=== PATIENT | male | born 1960 | race Caucasian/White ===

== ENCOUNTER → 2017-10-08 | Outpatient (CLI) | payer OTHER ==
[~2017-10-08] MED LIST: DICL100G18 TP; OXYC60TA7 PO
--- NOTE | 2017-10-08 13:31 | RAD ---
Right upper quadrant ultrasound 10/08/2017 Indication: Hepatitis C Comparison study: None Discussion: Ultrasound evaluation of the right upper quadrant was performed. Static images are submitted to PACS. The pancreas is not visualized secondary to overlying gas-filled bowel. Limited visualization of the aorta and IVC are unremarkable. The gallbladder is mildly distended measuring 5 cm in diameter. No bladder wall thickening, stones, or sludge is seen. No pericholecystic fluid is identified. Portal venous flows in the normal direction. Common bile duct is mildly dilated at 7 mm. The liver is mildly and diffusely hyperechoic. Within the posterior superior right liver there is a a hyperechoic mass measuring up to 2.5 cm in diameter. The liver is enlarged measuring 20 cm longitudinally. The liver is diffusely hyperechoic consistent with hepatic steatosis. The right kidney measures 12.2 cm and is normal in appearance. Visualized portions of the liver contour is within normal limits. Impression: 1. Hepatomegaly and probable hepatic steatosis 2. 2.5 cm hyperechoic mass in the posterior superior liver. Ultrasound appearance most commonly reflects a hepatic hemangioma. However given prior history of hepatitis C further characterization with hepatic protocol MRI or CT scan is recommended to exclude other masses including neoplastic lesions which can also produce this appearance. 3. Mild dilatation of the common bile duct. Mild gallbladder distention. Correlate with serum bilirubin levels. If there is concern for occult obstructive process, MRCP evaluation may be helpful.
== END | disposition home or self-care (01) ==
LOC: US 09:28
PROVIDERS: ATTEND Internal Medicine Gastroenterology
DX: B19.20 Unspecified viral hepatitis C without hepatic coma (principal); R16.0 Hepatomegaly, not elsewhere classified; K82.8 Other specified diseases of gallbladder
CPT/HCPCS: 76705

== ENCOUNTER 2018-10-12 11:09 | Emergency (ER) | payer OTHER ==
[~2018-10-12] VITALS: Ht 185.4 cm; Wt 92.0 kg
[2018-10-12 11:20] VITALS: BP 119/76
--- NOTE | 2018-10-12 11:41 | PHYS DOC ---
Past History Past Medical History: No Pertinent History Past Surgical History: No Surgical History Alcohol Use: Occasionally Drug Use: None Adult General Chief Complaint Chief Complaint: SKIN PROBLEM HPI HPI 58-year-old male presents with cellulitis of the right knee. Patient states he woke up yesterday and had a red, hot knee. There was a central area that appeared like pus. He poked it with a needle and drained out thick, yellowish fluid. Today the redness around the area is larger than it was yesterday. It is also sore to bend his knee. Patient denies fever or chills. He has no other wounds. Review of Systems Review of Systems Constitutional: Denies fever or chills [] Eyes: Denies change in visual acuity, redness, or eye pain [] HENT: Denies nasal congestion or sore throat [] Respiratory: Denies cough or shortness of breath [] Cardiovascular: No additional information not addressed in HPI [] GI: Denies abdominal pain, nausea, vomiting, bloody stools or diarrhea [] : Denies dysuria or hematuria [] Musculoskeletal: Denies back pain or joint pain [] Integument: Cellulitis of the right knee[] Neurologic: Denies headache, focal weakness or sensory changes [] Endocrine: Denies polyuria or polydipsia [] All other systems were reviewed and found to be within normal limits, except as documented in this note. Allergies Allergies Allergies Coded Allergies Type Severity Reaction Last Updated Verified No Known Drug Allergies 10/17/13 No Physical Exam Physical Exam Constitutional: Well developed, well nourished, no acute distress, non-toxic appearance. [] HENT: Normocephalic, atraumatic, bilateral external ears normal, oropharynx moist, no oral exudates, nose normal. [] Eyes: PERRLA, EOMI, conjunctiva normal, no discharge. [] Neck: Normal range of motion, no tenderness, supple, no stridor. [] Cardiovascular:Heart rate regular rhythm, no murmur [] Lungs & Thorax: Bilateral breath sounds clear to auscultation [] Abdomen: Bowel sounds normal, soft, no tenderness, no masses, no pulsatile masses. [] Skin: 8 cm erythematous, warm area of skin over the right patella. Small superficial pus pocket in the center of the patella.[] Back: No tenderness, no CVA tenderness. [] Extremities: No tenderness, no cyanosis, no clubbing, ROM intact, no edema. [] Neurologic: Alert and oriented X 3, normal motor function, normal sensory function, no focal deficits noted. [] Psychologic: Affect normal, judgement normal, mood normal. [] Current Patient Data Vital Signs Vital Signs Date Time Temp Pulse Resp B/P (MAP) Pulse Ox O2 Delivery O2 Flow Rate FiO2 10/12/18 11:20 98.1 102 18 97 Room Air EKG EKG [] Radiology/Procedures Radiology/Procedures [] Course & Med Decision Making Course & Med Decision Making Pertinent Labs and Imaging studies reviewed. (See chart for details) The patient has cellulitis. There does appear to be very small amount of superficial purulent fluid around the scab from his previous attempt to drain it. I do not palpate a drainable abscess. I was able to scrape a bit of the fluid out and culture it. I we'll place the patient on Bactrim and Keflex. We will give him Rocephin IM in the ED. Patient is stable for discharge at this time. [] Dragon Disclaimer Dragon Disclaimer This electronic medical record was generated, in whole or in part, using a voice recognition dictation system. Departure Departure: Referrals: VINEET JARVIS (PCP) SILVIA PHILIP DO Oct 12, 2018 11:41
[2018-10-12] MEDS ORDERED: SULF1TAB24 PO (11:44)
[2018-10-12] MEDS ORDERED: CEPH-264 PO (11:44)
[2018-10-12] MEDS ORDERED: cefTRIAXone IM 1 GM VIAL IM ONE (12:10)
== END 2018-10-12 11:58 | disposition home or self-care (01) ==
LOC: ER 11:09
DX: L03.115 Cellulitis of right lower limb (principal)
CPT/HCPCS: 87070; 96372; 99283; J0696

== ENCOUNTER 2018-11-25 21:52 | Emergency (ER) | payer OTHER ==
[~2018-11-25 21:52] MED LIST changes: +CEPH-264 PO; +SULF1TAB24 PO
[2018-11-25 21:55] VITALS: BP 129/76
[2018-11-25] MEDS ORDERED: CEPH-264 PO (22:14)
--- NOTE | 2018-11-25 22:15 | PHYS DOC ---
Past History Past Medical History: No Pertinent History Past Surgical History: No Surgical History Alcohol Use: Occasionally Drug Use: None Adult General Chief Complaint Chief Complaint: HAND PROBLEM HPI HPI Patient is a 58-year-old male who presents with fishhook in his left hand. Patient states that his last tetanus shot was about a year ago. He reports pain in his hand as being mild. Review of Systems Review of Systems Constitutional: Denies fever or chills [] Respiratory: Denies cough or shortness of breath [] Cardiovascular: No additional information not addressed in HPI [] Musculoskeletal: Positive left hand pain with foreign body. [] Allergies Allergies Allergies Coded Allergies Type Severity Reaction Last Updated Verified No Known Drug Allergies 10/17/13 No Physical Exam Physical Exam Constitutional: Well developed, well nourished, no acute distress, non-toxic appearance. [] Cardiovascular:Heart rate regular rhythm, no murmur [] Lungs & Thorax: Bilateral breath sounds clear to auscultation [] Skin: Examination of left hand demonstrates a foreign body/fishing hook in the palmar aspect of the hand at the base of the second digit. [] EKG EKG [] Radiology/Procedures Radiology/Procedures [] Course & Med Decision Making Course & Med Decision Making Pertinent Labs and Imaging studies reviewed. (See chart for details) [place] in left hand removed without difficulty utilizing a loop of 1-0 Vicryl suture material. The loop was placed around curved area of her chest and base of the foot around the eye was held in place by farm operations technical director and quick tug was utilized to disengage the yoanna and hook was dislodged without difficulty. Patient tolerated procedure well without reported pain. Dragon Disclaimer Dragon Disclaimer This electronic medical record was generated, in whole or in part, using a voice recognition dictation system. Departure Departure: Impression: Primary Impression: Foreign body of hand, left Disposition: 01 HOME, SELF-CARE Condition: STABLE Referrals: CAMERON LOPEZ MD (PCP) Patient Instructions: Fish Hook Removal Scripts Cephalexin (KEFLEX) 500 Mg Capsule 1 CAP PO BID for prevent infection, #14 CAP Prov: MORIS ERICKSON Jr. DO 11/25/18 Problem Qualifiers Primary Impression: Foreign body of hand, left Encounter type: initial encounter Qualified Codes: S60.552A - Superficial foreign body of left hand, initial encounter MORIS ERICKSON Jr. DO Nov 25, 2018 22:15
== END 2018-11-25 22:15 | disposition home or self-care (01) ==
LOC: ER 21:52
DX: S60.552A Superficial foreign body of left hand, initial encounter (principal); X58.XXXA Exposure to other specified factors, initial encounter; Y93.89 Activity, other specified; Y92.89 Other specified places as the place of occurrence of the external cause; Y99.8 Other external cause status
CPT/HCPCS: 99284

== ENCOUNTER 2019-12-06 02:21 | Emergency (ER) | payer OTHER ==
[~2019-12-06] VITALS: Ht 188 cm; Wt 97.4 kg
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
[2019-12-06 02:34] VITALS: BP 141/86
[2019-12-06] MEDS ORDERED: SULF1TAB24 PO (02:35)
[2019-12-06] MEDS ORDERED: SMZ/TMP 800/160MG TABLET. PO ONE (02:45)
[2019-12-06] MEDS ORDERED: DIPHTH,PERTUSS(ACELL),TET TOX 0.5 ML DISP.SYRIN. VAX IM ONE (02:45)
== END 2019-12-06 03:17 | disposition home or self-care (01) ==
LOC: ER 02:21
DX: L03.115 Cellulitis of right lower limb (principal); F17.200 Nicotine dependence, unspecified, uncomplicated
CPT/HCPCS: 90471; 90715; 99283

== ENCOUNTER 2020-06-06 01:10 | Emergency (ER) | payer OTHER ==
[~2020-06-06] VITALS: Ht 188 cm; Wt 97.4 kg
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
[2020-06-06] MEDS ORDERED: CEPH-264 PO (01:57)
[2020-06-06 02:00] VITALS: BP 127/75
[2020-06-06] MEDS ORDERED: HYDROcodone/APAP 5/325MG 1 TAB TABLET PO ONE (02:00)
[2020-06-06] MEDS ORDERED: CEPHALEXIN 250 MG CAPSULE PO ONE (02:00)
== END 2020-06-06 02:13 | disposition home or self-care (01) ==
LOC: ER 01:10
DX: A46 Erysipelas (principal); G89.29 Other chronic pain; M54.89 Other dorsalgia; Z86.19 Personal history of other infectious and parasitic diseases
CPT/HCPCS: 99284

== ENCOUNTER 2021-05-14 01:58 | Emergency (ER) | payer OTHER ==
[~2021-05-14] VITALS: Ht 188 cm; Wt 95.4 kg
--- NOTE | 2021-05-14 02:12 | PHYS DOC ---
Past History Past Medical History: No Pertinent History, Arthritis, Other Additional Past Medical Histor: DJD, Hepatitis C Past Surgical History: Other Additional Past Surgical Histo: back surgery and RLE repair with bolts. Alcohol Use: Occasionally Drug Use: None General Adult HPI: HPI: ".. My Rt. foot always swollen.. but my middle toe got.. a spider bite.. or it is infected..." Patient is a 60 year old male who presents with above hx and complaints third toe on right foot has what appears to be an insect bite and it is swollen and red. Patient first noticed a lesion on Thursday night. Patient has had chronic right foot edema and erythema. Has had developed a new lesion on third toe. Patient has a 1 cm area of what appears to be an insect bite that has become infected. Distal cap refill is equal to other toes. Patient does not remember his last tetanus shot. No recent travel. No specific ill contacts. No history immunosuppression. Review of Systems: Review of Systems: Constitutional: Denies fever or chills Eyes: Denies change in visual acuity HENT: Denies nasal congestion or sore throat Respiratory: Denies cough or shortness of breath Cardiovascular: Denies chest pain or edema GI: Denies abdominal pain, nausea, vomiting, bloody stools or diarrhea : Denies dysuria Musculoskeletal: Denies back pain or joint pain Integument: Complains of swollen area on right foot third toe at insect bite. Neurologic: Denies headache, focal weakness or sensory changes Endocrine: Denies polyuria or polydipsia Lymphatic: Denies swollen glands Psychiatric: Denies depression or anxiety Family History: Family History: Noncontributory to presentation Current Medications: Current Meds: See nursing for home meds Allergies: Allergies: Allergies Coded Allergies Type Severity Reaction Last Updated Verified No Known Drug Allergies 10/17/13 No Physical Exam: PE: Constitutional: , no acute distress, non-toxic appearance. [] HENT: Normocephalic, atraumatic, bilateral external ears normal, oropharynx moist, no oral exudates, nose normal. [] Eyes: PERRLA, EOMI, conjunctiva normal, no discharge. [] Neck: Normal range of motion, no tenderness, supple, no stridor. [] Cardiovascular:Heart rate regular rhythm, no murmur [] Lungs & Thorax: Bilateral breath sounds apex with scattered wheezes on auscultation [] Abdomen: Bowel sounds normal, soft, no tenderness, no masses, no pulsatile masses. [] Skin: Warm, dry, no erythema, no rash. Area on right third toe appears to be insect bite that has developed cellulitis Back: No tenderness, no CVA tenderness. [] Extremities: No tenderness, no cyanosis, no clubbing, ROM intact, chronic right foot edema. [] Arthritic changes. Neurologic: Alert and oriented X 3, moves all extremities on request, does have distal sensory, no focal deficits noted. [] Psychologic: Affect anxious, judgement normal, mood normal. [] EKG: EKG: [] Radiology/Procedures: Radiology/Procedures: [] Heart Score: C/O Chest Pain: N/A Risk Factors: Risk Factors: DM, Current or recent (<one month) smoker, HTN, HLP, family history of CAD, obesity. Risk Scores: Score 0 - 3: 2.5% MACE over next 6 weeks - Discharge Home Score 4 - 6: 20.3% MACE over next 6 weeks - Admit for Clinical Observation Score 7 - 10: 72.7% MACE over next 6 weeks - Early Invasive Strategies Course & Med Decision Making: Course & Med Decision Making Pertinent Labs and Imaging studies reviewed. (See chart for details) Patient soak right foot in Epson salt or salt water 4 times a day. Afterwards massage and Polysporin ointment on area of insect bite and infection of the right third toe. Patient take Bactrim DS twice a day. Patient follow-up primary care. Patient return if any concerns. Impression: 1. Right third toe insect bite/cellulitis [] Dragon Disclaimer: Dragon Disclaimer: This electronic medical record was generated, in whole or in part, using a voice recognition dictation system. Departure Departure: Referrals: PCP,NO (PCP) Scripts Sulfamethoxazole/Trimethoprim (BACTRIM DS TABLET) 1 Each Tablet 1 TAB PO BID for cellulitis for 7 Days, #14 TAB 0 Refills Prov: MIROSLAVA FREITAS MD 05/14/21 [place] Disclaimer This chart was dictated in whole or in part using Voice Recognition software in a busy, high-work load, and often noisy Emergency Department environment. It may contain unintended and wholly unrecognized errors or omissions. MIROSLAVA FREITAS MD May 14, 2021 02:12
[2021-05-14 02:16] VITALS: BP 142/75
[2021-05-14] MEDS ORDERED: SULF1TAB24 PO (02:39)
[2021-05-14] MEDS ORDERED: DIPH,PERTUSS(ACELL),TET VAC/PF 0.5 ML SYRINGE. VAX IM ONE (03:00)
[2021-05-14] MEDS ORDERED: SMZ/TMP 800/160MG TABLET. PO ONE (03:00)
[2021-05-14] MEDS ORDERED: cefTRIAXone IM 1 GM VIAL IM ONE (03:00)
== END 2021-05-14 03:00 | disposition home or self-care (01) ==
LOC: ER 01:58
DX: S90.464A Insect bite (nonvenomous), right lesser toe(s), initial encounter (principal); L03.031 Cellulitis of right toe; M19.90 Unspecified osteoarthritis, unspecified site; W57.XXXA Bitten or stung by nonvenomous insect and other nonvenomous arthropods, initial encounter; Y93.89 Activity, other specified; Y92.89 Other specified places as the place of occurrence of the external cause; Y99.8 Other external cause status
CPT/HCPCS: 90471; 90715; 96372; 99284; J0696

== ENCOUNTER 2021-12-07 09:03 | Emergency (ER) | payer MEDICAID, OTHER ==
[~2021-12-07] VITALS: Ht 188 cm; Wt 95.4 kg
[2021-12-07 09:27] VITALS: BP 124/16
[2021-12-07] MEDS ORDERED: MELO7.5T5 PO (09:36)
--- NOTE | 2021-12-07 09:37 | PHYS DOC ---
Past History Past Medical History: Arthritis, Other Additional Past Medical Histor: DJD, Hepatitis C Past Surgical History: No Surgical History Additional Past Surgical Histo: back surgery and RLE repair with bolts. Alcohol Use: None Drug Use: None Adult General Chief Complaint Chief Complaint: HAND PROBLEM HPI HPI Patient is a 61-year-old male presenting via POV for multiple complaints. First, patient complains of right hand pain. Denies any injury. States this is been going on for years. 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 He has not taken anything for his pain. No underlying autoimmune diseases or other traumas noted. Also presents for right lower extremity numbness and tingling at times. States he had a severe accident at work 2 years ago and "almost lost my leg". States ever since then he has had occasional numbness and tingling with no history of diabetes or other neuropathic conditions. Patient also wanting to be evaluated for right groin pain. States at times he has bulging that comes in and out of his right groin area. Reports it is worse with increased intra-abdominal pressure when he lifts and bears down Review of Systems Review of Systems Fourteen body systems of review of systems have been reviewed. See HPI for pertinent positives and negative responses, other hinojosa all other systems are negative, non-pertinent or non-contributory Allergies Allergies Allergies Coded Allergies Type Severity Reaction Last Updated Verified No Known Drug Allergies 10/17/13 No Physical Exam Physical Exam Constitutional: Appears older than stated age, poor hygiene overall, no acute distress, non-toxic appearance. HENT: Normocephalic, atraumatic, bilateral external ears normal, oropharynx moist, no oral exudates, nose normal. Eyes: PERRLA, EOMI, conjunctiva normal, no discharge. Neck: Normal range of motion, no tenderness, supple, no stridor. Cardiovascular: Heart rate regular, sinus rhythm, no murmurs rubs or gallops Lungs & Thorax: Bilateral breath sounds clear to auscultation Abdomen: Bowel sounds normal, soft, no tenderness, no masses, no pulsatile masses. Nonsurgical abdomen, no peritoneal signs Skin: Warm, dry, no erythema, no rash. Back: No tenderness, no CVA tenderness. Extremities: No tenderness, no cyanosis, no clubbing, ROM intact, no edema. 2+ radial pulses to bilateral upper extremities Neurologic: Alert and oriented X 3, medial radial and ulnar nerves of bilateral upper extremities intact, normal motor & sensory function, no focal deficits noted. Psychologic: Affect normal, judgement normal, mood normal. Current Patient Data Vital Signs Vital Signs Date Time Temp Pulse Resp B/P (MAP) Pulse Ox O2 Delivery O2 Flow Rate FiO2 12/07/21 09:27 98.7 80 18 124/16 (52) 99 Room Air EKG EKG [] Radiology/Procedures Radiology/Procedures [] Heart Score C/O Chest Pain: No Risk Factors: Risk Factors: DM, Current or recent (<one month) smoker, HTN, HLP, family history of CAD, obesity. Risk Scores: Risk Factors: DM, Current or recent (<one month) smoker, HTN, HLP, family history of CAD, obesity. Course & Med Decision Making Course & Med Decision Making ABCs unremarkable HPI and physical exam nonconcerning for any emergent or surgical issues Patient has right hand pain without any obvious trauma. I discussed utility of x-ray but no palpable and/or visual abnormalities present in absence of trauma as stated. He has not taken anything for pain. Joint decision to prescribe Mobic Patient also complaining of right lower extremity issues that are chronic in nature. Likely neuropathic from prior trauma. I disclose little indication for further diagnostic work-up of this Patient's reported issue with right groin likely inguinal hernia in nature. I recommended physical exam but he deferred. Given history that it comes and goes, likely retractable/mobile and nonemergent in nature. Outpatient general surgery follow-up advised Ultimately, I disclosed need for patient to establish with primary care physician for continuity of care in outpatient setting given numerous chronic complaints. Strict return precautions discussed prior to departure Dragon Disclaimer Dragon Disclaimer This electronic medical record was generated, in whole or in part, using a voice recognition dictation system. Departure Departure: Impression: Primary Impression: Right hand pain Disposition: HOME / SELF CARE / HOMELESS Condition: STABLE Referrals: PCP,NO (PCP) Additional Instructions: You were evaluated in the Emergency Department today for hand pain. Your evaluation suggests no acute abnormalities which require further intervention at this time. You are prescribed a pain medication which she should take daily as scheduled to completion until you follow-up with your primary care physician Establishing with primary care physician is essential in order for you to follow-up on your numerous complaints in the outpatient setting It is also advised you discussed need for outpatient general surgery consultation for evaluation of your likely right-sided inguinal hernia - Medications will help control your discomfort: - Prescribed Mobic 7.5 mg once or twice daily - Tylenol Return to the ED immediately if you develop any of the following problems: - Leaking urine or difficulty urinating; - Inability to control your bowels; - New numbness or weakness in your legs or numbness between your legs; - Inability to walk - Fever Scripts Meloxicam (MOBIC) 7.5 Mg Tablet 1 TAB PO DAILY for pain, #30 TAB 1 Refill Prov: ANIL RIGGS DO 12/07/21 ANIL RIGGS DO Dec 07, 2021 09:37
[2021-12-08] MEDS ORDERED: MELOXICAM 7.5 MG TABLET PO SCH (09:00)
== END 2021-12-07 10:12 | disposition home or self-care (01) ==
LOC: ER 09:03
DX: M79.641 Pain in right hand (principal); E11.9 Type 2 diabetes mellitus without complications
CPT/HCPCS: 99283-25

== ENCOUNTER 2022-03-11 14:33 | Emergency (ER) | payer OTHER ==
[~2022-03-11] VITALS: Ht 188 cm; Wt 95.4 kg
[~2022-03-11 14:33] MED LIST changes: +MELO7.5T5 PO
[2022-03-11] MEDS ORDERED: IV NORMAL SALINE 1,000ML 1,000 ML IV ONE (15:30)
--- NOTE | 2022-03-11 15:40 | RAD ---
Axial noncontrast CT imaging of the abdomen pelvis was obtained. Coronal and sagittal reformats are a vailable. INDICATION: Right inguinal pain. Known hernia. FINDINGS: The heart is unenlarged. Lung bases are clear. Limited evaluation solid organs without intravenous co ntrast. Liver, gallbladder, spleen adrenals right kidney are unremarkable in appearance. There is a b enign-appearing cyst in the left mid pole kidney. Additionally there is a nonobstructive collecting s ystem calculus in the left mid pole kidney. The stomach, small and large bowel are nondistended. No evidence pathologic wall thickening. There is a right fat filled hernia. There is no bowel contained within the hernia sac. There is some induration of the fat within the hernia. No free air-fluid. Radiologically significant retroperitonea l or mesenteric lymphadenopathy. Abdominal aorta is nonaneurysmal. The prostate gland is enlarged. Th e urinary bladder is nondistended. There is age-appropriate degenerative change. IMPRESSION: 1. Right-sided inguinal fat filled hernia with mild induration of some of the fat suggestive of possi ble incarceration. No bowel is identified within the hernia sac. No bowel obstruction is seen. Exposure: One or more of the following individualized dose reduction techniques were utilized for thi s examination: 1. Automated exposure control 2. Adjustment of the mA and/or kV according to patient size 3. Use of iterative reconstruction technique Electronically signed by: Zach Chung MD (03/11/2022 3:38 PM) [facility]
--- NOTE | 2022-03-11 15:55 | PHYS DOC ---
Past History Past Medical History: Arthritis, Other Additional Past Medical Histor: DJD, Hepatitis C Past Surgical History: Other Additional Past Surgical Histo: back surgery and RLE repair with bolts. Alcohol Use: None Drug Use: None General Adult EDM: Chief Complaint: ABDOMINAL PAIN HPI: HPI: Patient is a 61-year-old male who presents to the emergency department for right groin pain that he rates 3 out of 10. He reports that the pain started 6 months ago when he was diagnosed with a inguinal hernia in snf. Patient denies nausea, vomiting, diarrhea, fevers, urinary symptoms. He reports that he is able to reduce the hernia on his own. Review of Systems: Review of Systems: Constitutional: see HPI GI: see HPI : see HPI Current Medications: Current Meds: Current Medications Medications (Trade) Dose Ordered Sig/Asha Start Time Stop Time Status Last Admin Dose Admin Fentanyl Citrate (Fentanyl 2ml Vial) 50 mcg 1X ONCE 03/11/22 15:30 03/11/22 15:37 DC Sodium Chloride 1,000 ml @ 1,000 mls/hr 1X ONCE 03/11/22 15:30 03/11/22 16:29 Allergies: Allergies: Allergies Coded Allergies Type Severity Reaction Last Updated Verified No Known Drug Allergies 03/11/22 No Physical Exam: PE: Constitutional: Well developed, well nourished, no acute distress, non-toxic appearance. [] HENT: Normocephalic, atraumatic, bilateral external ears normal, oropharynx moist, no oral exudates, nose normal. [] Eyes: PERRL, EOMI, conjunctiva normal, no discharge. [] Neck: Normal range of motion, no tenderness, supple, no stridor. [] Cardiovascular:Heart rate regular rhythm, no murmur [] Lungs & Thorax: Bilateral breath sounds clear to auscultation [] Abdomen: Bowel sounds normal, soft, no tenderness, right inguinal hernia that is reducible, no rigidity or guarding, no pulsatile masses. [] Skin: Warm, dry, no erythema, no rash. [] Back: No tenderness, normal range of motion Extremities: No tenderness, no cyanosis, no clubbing, ROM intact, no edema. [] Neurologic: Alert and oriented X 3, normal motor function, normal sensory function, no focal deficits noted. [] Psychologic: Affect normal, judgement normal, mood normal. [] Current Patient Data: Vital Signs: Vital Signs Date Time Temp Pulse Resp B/P (MAP) Pulse Ox O2 Delivery O2 Flow Rate FiO2 03/11/22 14:49 98.7 84 18 143/78 (99) 98 Room Air EKG: EKG: [] Radiology/Procedures: Radiology/Procedures: []PROCEDURE: CT ABDOMEN PELVIS WO CONTRAST Axial noncontrast CT imaging of the abdomen pelvis was obtained. Coronal and sagittal reformats are available. INDICATION: Right inguinal pain. Known hernia. FINDINGS: The heart is unenlarged. Lung bases are clear. Limited evaluation solid organs without intravenous contrast. Liver, gallbladder, spleen adrenals right kidney are unremarkable in appearance. There is a benign-appearing cyst in the left mid pole kidney. Additionally there is a nonobstructive collecting system calculus in the left mid pole kidney. The stomach, small and large bowel are nondistended. No evidence pathologic wall thickening. There is a right fat filled hernia. There is no bowel contained within the hernia sac. There is some induration of the fat within the hernia. No free air- fluid. Radiologically significant retroperitoneal or mesenteric lymphadenopathy. Abdominal aorta is nonaneurysmal. The prostate gland is enlarged. The urinary bladder is nondistended. There is age-appropriate degenerative change. IMPRESSION: 1. Right-sided inguinal fat filled hernia with mild induration of some of the fat suggestive of possible incarceration. No bowel is identified within the hernia sac. No bowel obstruction is seen. Exposure: One or more of the following individualized dose reduction techniques were utilized for this examination: 1. Automated exposure control 2. Adjustment of the mA and/or kV according to patient size 3. Use of iterative reconstruction technique Electronically signed by: Zach Valentine MD (03/11/2022 3:38 PM) [facility] DICTATED AND SIGNED BY: ZACH VALENTINE MD DATE: 03/11/22 1535 CC: [employer]; PCP,NO ~ Heart Score: C/O Chest Pain: N/A Risk Factors: Risk Factors: DM, Current or recent (<one month) smoker, HTN, HLP, family history of CAD, obesity. Risk Scores: Score 0 - 3: 2.5% MACE over next 6 weeks - Discharge Home Score 4 - 6: 20.3% MACE over next 6 weeks - Admit for Clinical Observation Score 7 - 10: 72.7% MACE over next 6 weeks - Early Invasive Strategies Course & Med Decision Making: Course & Med Decision Making Pertinent Labs and Imaging studies reviewed. (See chart for details) Patient presents to the emergency department for right inguinal hernia. The hernia is reducible and he was with mild pain. Not having nausea, vomiting, diarrhea or fevers. CT imaging performed that does show a fracture continue hernia without any problem. Patient advised to follow-up with a general surgeon and he was given a referral. Patient's pain treated in the ER. I discussed with patient all findings and diagnostic testing as well as the need to follow- up with PCP for further evaluation and treatment or return to the ER if any new or worsening symptoms. Strict return precautions were also discussed at length. Patient voiced understanding and agreement with the plan. Patient is hemodynamically stable at the time of disposition. Dragon Disclaimer: Dragon Disclaimer: This electronic medical record was generated, in whole or in part, using a voice recognition dictation system. Departure Departure: Impression: Primary Impression: Hernia of abdominal wall Disposition: HOME / SELF CARE / HOMELESS Condition: GOOD Referrals: PCP,NO (PCP) ALPHONSO XAVIER MD Patient Instructions: Hernia Additional Instructions: You are seen in the emergency department for pain in your hernia site. You will need to follow-up with a general surgeon regarding this. Information for general surgeon was attached to this discharge paperwork. He can take Tylenol and ibuprofen at home for your pain. Return to the emergency department if you develop abdominal pain, high fevers refractory to treatment, intractable nausea or vomiting. [employer] March 11, 2022 15:55
[2022-03-11 16:00] VITALS: BP 140/70
[2022-03-11] MEDS ORDERED: HYDROcodone/APAP 5/325MG 1 TAB TABLET PO ONE (16:00)
== END 2022-03-11 16:18 | disposition home or self-care (01) ==
LOC: ER 14:33
DX: K43.9 Ventral hernia without obstruction or gangrene (principal); M19.90 Unspecified osteoarthritis, unspecified site
CPT/HCPCS: 74176; 99284